=== PATIENT | female | born 1985 | race Asian ===

== ENCOUNTER 2017-04-29 21:36 | Emergency (ER) | payer SELFPAY ==
[~2017-04-29] VITALS: Ht 162.6 cm; Wt 55.0 kg
[2017-04-29 21:37] VITALS: BP 134/85
== END 2017-04-30 07:41 | disposition left against medical advice (07) ==
LOC: ER 21:36
DX: M25.512 Pain in left shoulder (principal); Z53.21 Procedure and treatment not carried out due to patient leaving prior to being seen by health care provider